=== PATIENT | female | born 1995 | race African-American/Black ===

== ENCOUNTER 2017-12-26 16:33 | Emergency (ER) | payer MEDICAID ==
[~2017-12-26] VITALS: Ht 157.5 cm; Wt 89.8 kg
[2017-12-26 16:46] VITALS: BP 136/50
--- NOTE | 2017-12-26 16:51 | NUR ---
PT AMBULATES TO CHAIR C
--- NOTE | 2017-12-26 16:55 | NUR ---
PATIENT PRESENTS TO ED WITH C/O RIGHT LEG PAIN . PT STATES SHE WOKE UP TODAY WITH RIGHT LEG PAIN. PATIENT DENIES ANY INJURY OR TRAUMA . DENIES N/V/D; SKIN IS PINK/WARM/DRY; AAOX4 WITH EVEN AND STEADY GAIT; LUNGS CLEAR BL; HR EVEN AND REGULAR; PT DENIES ANY FEVER, CP, SOB, OR COUGH AT THIS TIME; PATIENT STATES PAIN OF 9/10 AT THIS TIME; VSS; PATIENT POSITIONED FOR COMFORT; HOB ELEVATED; BEDRAILS UP X2; BED DOWN. ER MD MADE AWARE OF PT STATUS.
[2017-12-26] MEDS ORDERED: KETOROLAC 30 MG/ML VIAL IM ONE (18:15)
--- NOTE | 2017-12-26 18:15 | NUR ---
Patient being evaluated by physician at bedside.
--- NOTE | 2017-12-26 18:40 | NUR ---
US DONE AT BEDSIDE.
--- NOTE | 2017-12-26 19:00 | NUR ---
NOT ABLE TO COLLECT URINE AT THIS TIME, DR. PHILLIPS AWARE.
--- NOTE | 2017-12-26 19:03 | NUR ---
Patient discharged with v/s stable. Written and verbal after care instructions given and explained. Patient alert, oriented and verbalized understanding of instructions. Ambulatory with steady gait. All questions addressed prior to discharge. ID band removed. Patient advised to follow up with PMD. Rx of NORCO AND NAPROSYN given. Patient educated on indication of medication including possible reaction and side effects. Opportunity to ask questions provided and answered.
[2017-12-26 19:05] VITALS: BP 130/52
== END 2017-12-26 19:03 | disposition home or self-care (01) ==
LOC: MED 16:33
DX: M79.661 Pain in right lower leg (principal); J45.909 Unspecified asthma, uncomplicated; Z90.49 Acquired absence of other specified parts of digestive tract
CPT/HCPCS: 93971; 96372; 99284; J1885; Q0092

== ENCOUNTER 2019-11-15 07:17 | Emergency (ER) | payer MEDICAID ==
[~2019-11-15] VITALS: Ht 154.9 cm; Wt 94.8 kg
[2019-11-15 07:21] VITALS: BP 125/101
--- NOTE | 2019-11-15 07:33 | NUR ---
PT TAKEN TO BED 4
--- NOTE | 2019-11-15 07:35 | NUR ---
/ BIB SELF C/O Lower abdominal pain and sharp pains to right side since this morning. Reports mild nausea Denies V/D. 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 PATIENT STATES PAIN OF 8/10 AT THIS TIME. PATIENT POSITIONED FOR COMFORT; HOB ELEVATED; BEDRAILS UP X1; BED DOWN. ER MADE AWARE OF PT STATUS. Addendum: 11/15/19 at 0902 by [email or web address] RETAIN[place] [facility] [place]
[2019-11-15] MEDS ORDERED: HYDROcodone/APAP 5/325 MG 1 TAB TAB PO ONE (08:15)
[2019-11-15] MEDS ORDERED: ONDANSETRON 4 MG ODT PO ONE (08:15)
[2019-11-15 08:35] LABS: APPEARANCE,URINE CLEAR (CLEAR); BILIRUBIN,URINE NEGATIVE (NEGATIVE); BLOOD, URINE NEGATIVE (NEGATIVE); COLOR,URINE YELLOW (YELLOW); LEUKOCYTE ESTERASE ,URINE NEGATIVE (NEGATIVE); NITRITE, URINE NEGATIVE (NEGATIVE); UGLUCOSE NEGATIVE (NEGATIVE)
--- NOTE | 2019-11-15 08:53 | NUR ---
lab at bedside, meds given
[2019-11-15 08:54] LABS: BASOPHILS % (AUTO) 0.4 % (0.0-2.0); EOSINOPHILS # (AUTO) 0.1 K/uL (0-0.4); EOSINOPHILS % (AUTO) 1.7 % (0.0-4.0); HEMATOCRIT 39.8 % (36-48); HEMOGLOBIN 13.6 g/dL (12.0-16.0); LYMPHOCYTES % (AUTO) 37.8 % (20.5-51.1); MEAN CORPUSCULAR HEMOGLOBIN 27 pg (27-31); MEAN CORPUSCULAR HGB CONC 34 g/dL (33-37); MEAN CORPUSCULAR VOLUME 79.1 fL (80-94); MONOCYTES # (AUTO) 0.6 K/uL (0.8-1.0); MONOCYTES % (AUTO) 7.2 % (1.7-9.3); NEUTROPHILS # (AUTO) 4.2 K/uL (1.8-7.7); NEUTROPHILS % (AUTO) 52.9 % (42.2-75.2); PLATELET COUNT (AUTO) 290 K/uL (140-450); RED BLOOD CELL COUNT(AUTO) 5.03 MIL/uL (4.20-5.40); RED CELL DISTRIBUTION WIDTH 13.2 % (11.6-13.7); WHITE BLOOD COUNT (AUTO) 7.9 K/uL (4.8-10.8)
[2019-11-15 09:09] LABS: ALBUMIN 3.9 g/dL (3.4-5.0); CARBON DIOXIDE 29.1 mmol/L (21-32); CREATININE 0.7 mg/dL (0.6-1.3); POTASSIUM 4.1 mmol/L (3.5-5.1); TOTAL BILIRUBIN 0.3 mg/dL (0.0-1.0)
[2019-11-15 09:43] VITALS: BP 118/89
--- NOTE | 2019-11-15 09:43 | NUR ---
Patient discharged with v/s stable. Written and verbal after care instructions given and explained. Patient alert, oriented and verbalized understanding of instructions. Ambulatory with steady gait. All questions addressed prior to discharge. ID band removed. Patient advised to follow up with PMD. Rx of REGLAND, NORCO & MIRALAX given. Patient educated on indication of medication including possible reaction and side effects. Opportunity to ask questions provided and answered.
== END 2019-11-15 09:43 | disposition home or self-care (01) ==
LOC: MED 07:17
DX: R10.30 Lower abdominal pain, unspecified (principal); J45.909 Unspecified asthma, uncomplicated
CPT/HCPCS: 36415; 74176; 80053; 81003; 81025; 85025; 99284; Q0162

== ENCOUNTER 2022-02-08 22:23 | Emergency (ER) | payer MEDICAID ==
[~2022-02-08] VITALS: Ht 154.9 cm; Wt 96.2 kg
[2022-02-08 23:41] VITALS: BP 123/66
--- NOTE | 2022-02-08 23:41 | NUR ---
26 Y/O FEMALE BIBS FROM HOME, C/O FOREIGN OBJECT IN EYES FROM FACE WASH X1 DAY. "DISCOMFORT." PT STATES IT DOES NOT AFFECT HER VISION BUT "DRIES HER EYES." NO REDNESS NOTED TO PT'S EYES. PT IS ABLE TO AMBULATE W/O ASSISTANCE. UNLABORED BREAHTING; A/OX4, GCS-15. PT SEATED IN BED WITH HOB RAISED AND BED IN LOWEST SETTING, WITH RAIL UP X1. HX: HTN, ASTHMA, AND OVARIAN CYST ALL: PCN, TORADOL MEDS: AMLODIPINE
[2022-02-08] MEDS ORDERED: FLUORESCEIN OPTH STRIP 1 MG OP ONE (23:55)
[2022-02-08] MEDS ORDERED: TETRACAINE HCL/PF 0.5% OPTH 4 ML BTL OP ONE (23:55)
[2022-02-08] MEDS ORDERED: ERYTHROMYCIN 0.5% OPTH OINT 1 GM TUBE OP ONE (23:55)
[2022-02-09] MEDS ORDERED: FLUORESCEIN OPTH STRIP 1 MG ONE (01:06)
[2022-02-09] MEDS ORDERED: TETRACAINE HCL/PF 0.5% OPTH 4 ML BTL ONE (01:06)
--- NOTE | 2022-02-09 01:10 | NUR ---
PT TO BED 05 AMBULATORY
[2022-02-09] MEDS ORDERED: ERYTHROMYCIN 0.5% OPTH OINT 1 GM TUBE ONE (01:27)
--- NOTE | 2022-02-09 01:29 | NUR ---
PER ERMD ONLY ADMIN 1GM TO BOTH EYES OF ERYTHOMYCIN.
--- NOTE | 2022-02-09 02:16 | NUR ---
PT SITTING ON SIDE OF BED. NO DISTRESS NOTED.
[2022-02-09] MEDS ORDERED: TOBR5SOL17 RIGHT EYE (02:40)
[2022-02-09] MEDS ORDERED: KETO5SOL OP (02:40)
--- NOTE | 2022-02-09 02:52 | NUR ---
ERYTHROMYCIN APPLIED TO INO EYES.
[2022-02-09 03:11] VITALS: BP 167/94
--- NOTE | 2022-02-09 03:11 | NUR ---
Patient discharged with v/s stable. Written and verbal after care instructions given and explained. Patient alert, oriented and verbalized understanding of instructions. Ambulatory with steady gait. All questions addressed prior to discharge. ID band removed. Patient advised to follow up with PMD. Rx of KETOROLAC TROMETHAMINE TOBRAMYCIN given. Patient educated on indication of medication including possible reaction and side effects. Opportunity to ask questions provided and answered.
[2022-02-09] MEDS ORDERED: HYDROXYZINE HYDROCHLORIDE 25 MG TAB PO ONE (03:15)
--- NOTE | 2022-02-09 03:38 | NUR ---
The patient's care was reviewed and supervised by Shirley Henley RN.
[2022-02-10] MEDS ORDERED: DIPH25TA41 PO (19:27)
[2022-02-10] MEDS ORDERED: METO-485 PO (19:27)
[2022-02-10] MEDS ORDERED: NITR100C7 PO (19:33)
== END 2022-02-09 03:11 | disposition home or self-care (01) ==
LOC: MED 22:23
DX: S05.01XA Injury of conjunctiva and corneal abrasion without foreign body, right eye, initial encounter (principal); J45.909 Unspecified asthma, uncomplicated; Z79.899 Other long term (current) drug therapy; Z79.2 Long term (current) use of antibiotics; Z88.0 Allergy status to penicillin; Z88.6 Allergy status to analgesic agent; X58.XXXA Exposure to other specified factors, initial encounter; Y92.89 Other specified places as the place of occurrence of the external cause; Y93.89 Activity, other specified; Y99.8 Other external cause status
CPT/HCPCS: 99284

== ENCOUNTER 2022-02-10 15:10 | Emergency (ER) | payer MEDICAID ==
[~2022-02-10] VITALS: Ht 152.4 cm; Wt 95.3 kg
[~2022-02-10 15:10] MED LIST: KETO5SOL OP; TOBR5SOL17 RIGHT EYE
[2022-02-10 15:23] VITALS: BP 159/116
[2022-02-10 16:18] LABS: BASOPHILS % (AUTO) 0.5 % (0.0-2.0); EOSINOPHILS # (AUTO) 0.1 K/uL (0-0.4); EOSINOPHILS % (AUTO) 0.9 % (0.0-4.0); HEMATOCRIT 37.2 % (36-48); HEMOGLOBIN 12.4 g/dL (12.0-16.0); LYMPHOCYTES # (AUTO) 1.5 K/uL (2.5-16.5); LYMPHOCYTES % (AUTO) 22.3 % (20.5-51.1); MEAN CORPUSCULAR HEMOGLOBIN 26 pg (27-31); MEAN CORPUSCULAR HGB CONC 33 g/dL (33-37); MEAN CORPUSCULAR VOLUME 77.1 fL (80-94); MONOCYTES # (AUTO) 0.4 K/uL (0.8-1.0); NEUTROPHILS # (AUTO) 4.6 K/uL (1.8-7.7); NEUTROPHILS % (AUTO) 70.3 % (42.2-75.2); PLATELET COUNT (AUTO) 341 K/uL (140-450); RED BLOOD CELL COUNT(AUTO) 4.82 MIL/uL (4.20-5.40); WHITE BLOOD COUNT (AUTO) 6.5 K/uL (4.8-10.8)
[2022-02-10 16:47] LABS: ALBUMIN 3.8 g/dL (3.4-5.0); ANION GAP 13.7 (8-16); CREATININE 0.8 mg/dL (0.6-1.3); POTASSIUM 3.7 mmol/L (3.5-5.1); TOTAL BILIRUBIN 0.3 mg/dL (0.0-1.0)
[2022-02-10] MEDS ORDERED: MORPHINE SULFATE 4 MG/ML SYR IM ONE (16:55)
--- NOTE | 2022-02-10 17:10 | NUR ---
PT AMBULATED TO ER BED 9
--- NOTE | 2022-02-10 17:20 | NUR ---
26/F C/O LOWER ABDOMINAL PAIN, SHARP AND CRAMPY 07/06. STATES SHE WAS SEEN HERE ON 01/29/22 FOR SAME SYMPTOMS AND WAS TOLD SHE HAD MULTIPLE OVARIAN CYSTS. PT STATES THAT HER PCP REFERRED HER TO GO TO THE ER FOR TORSION. DENIED ANY MEDICATION FOR PAIN. DENIES N/V/D OR URINARY SYMPTOMS. DENIES ANY VAGINAL DISCHARGE OR BLEEDING PMH: HX OF OVARIAN CYSTS, HTN, ASTHMA ALLERGIES: PENICILLINS, TORADOL
--- NOTE | 2022-02-10 17:25 | NUR ---
KATHARINA AT BEDSIDE
[2022-02-10] MEDS ORDERED: ONDANSETRON 4 MG ODT PO ONE (17:30)
--- NOTE | 2022-02-10 19:22 | NUR ---
PT REPORT RECEIVED FROM PATRICIA VENEGAS. CONTINUITY OF PT CARE AT THIS TIME.
--- NOTE | 2022-02-10 19:24 | NUR ---
Pt report given to HUAN GOMEZ. Transfer of care at this time.
[2022-02-10] MEDS ORDERED: DIPH25TA41 PO (19:27)
[2022-02-10] MEDS ORDERED: METO-485 PO (19:27)
[2022-02-10] MEDS ORDERED: NITR100C7 PO (19:33)
--- NOTE | 2022-02-10 19:33 | NUR ---
PT SITTING IN BED LOCKED IN LOWEST POSITION W X1 SIDERAIL UP. PT C/O OF ONGOING ABDOMINAL PAIN 07/06, PT UP FOR DISCHARGE REPORTS SHE WANTS MEDICATION TO HELP HER SLEEP D/T THE PAIN. OBED MADE AWARE.
--- NOTE | 2022-02-10 19:45 | NUR ---
BOED FRANK AT BEDSIDE SPEAKING W PT.
[2022-02-10 19:53] VITALS: BP 139/94
--- NOTE | 2022-02-10 19:53 | NUR ---
Patient discharged with v/s stable. Written and verbal after care instructions given and explained. Patient alert, oriented and verbalized understanding of instructions. Ambulatory with steady gait. All questions addressed prior to discharge. ID band removed. Patient advised to follow up with PMD. Rx of REGLAN, BENADRYL, MACROBID given. Patient educated on indication of medication including possible reaction and side effects. Opportunity to ask questions provided and answered.
== END 2022-02-10 19:53 | disposition home or self-care (01) ==
LOC: MED 15:10
DX: R10.2 Pelvic and perineal pain (principal); G89.29 Other chronic pain; R11.0 Nausea; J45.909 Unspecified asthma, uncomplicated; I10 Essential (primary) hypertension; Z90.49 Acquired absence of other specified parts of digestive tract; Z79.899 Other long term (current) drug therapy; Z79.2 Long term (current) use of antibiotics; Z88.0 Allergy status to penicillin; Z88.6 Allergy status to analgesic agent
CPT/HCPCS: 36415; 76856; 80053; 81002; 81025; 83690; 85025; 87491; 93976; 96372; 99284; J2270; Q0092; Q0162

== ENCOUNTER 2022-03-08 20:46 | Emergency (ER) | payer MEDICAID ==
[~2022-03-08] VITALS: Ht 152.4 cm; Wt 93.9 kg
[~2022-03-08 20:46] MED LIST changes: +DIPH25TA41 PO; +METO-485 PO; +NITR100C7 PO
[2022-03-08 21:03] VITALS: BP 150/105
[2022-03-08] MEDS ORDERED: ZOLP5TAB1 PO (22:05)
[2022-03-08 22:34] VITALS: BP 136/95
== END 2022-03-08 22:34 | disposition home or self-care (01) ==
LOC: MED 20:46
DX: G47.00 Insomnia, unspecified (principal); J45.909 Unspecified asthma, uncomplicated; I10 Essential (primary) hypertension; Z79.2 Long term (current) use of antibiotics; Z79.899 Other long term (current) drug therapy; Z88.0 Allergy status to penicillin; Z88.6 Allergy status to analgesic agent
CPT/HCPCS: 99283

== ENCOUNTER 2022-03-12 22:57 | Emergency (ER) | payer MEDICAID ==
[~2022-03-12] VITALS: Ht 152.4 cm; Wt 93.9 kg
[~2022-03-12 22:57] MED LIST changes: +ZOLP5TAB1 PO
[2022-03-12 23:06] VITALS: BP 136/92
--- NOTE | 2022-03-12 23:35 | NUR ---
RECEIVED CALL FROM ADMIT STAFF STATING PT LEFT FACILITY AT THIS TIME. PATIENT LEFT WITHOUT BEING SEEN BY DR. HART. NO FURTHER CARE PROVIDED FOR PATIENT.
== END 2022-03-12 23:35 | disposition left against medical advice (07) ==
LOC: MED 22:57
DX: R06.02 Shortness of breath (principal); R07.9 Chest pain, unspecified; Z53.21 Procedure and treatment not carried out due to patient leaving prior to being seen by health care provider